=== PATIENT | male | born 1945 | race Caucasian/White ===

== ENCOUNTER 2022-08-31 13:04 | Inpatient (IN) | payer MEDICARE ==
[~2022-08-31 13:04] MED LIST: Iopamidol-370 76% 500 ML 1 ML ONE; Magnevist 469MG/ML 20 ML VIAL ONE
[2022-08-31] MEDS ORDERED: Dexamethasone 10 MG/ML VIAL ONE (13:44)
[2022-08-31 13:46] LABS: #Eosinphils 0.1 thou/uL (0.0-0.7); #Lymphocytes 0.8 thou/uL (1.20-3.40); #Monocytes 0.9 thou/uL (0.11-0.59); #Neutrophils 7.8 thou/uL (1.40-6.50); %Basophils 0.1 % (0.0-1.0); %Eosinophils 1.3 % (0.0-10.0); %Lymphocytes 8.2 % (21.0-51.0); %Monocytes 9.8 % (0.0-10.0); %Neutrophils 80.7 % (42.0-75.0); Hemoglobin 14.3 g/dL (14.0-18.0); Mean Corpuscular Hemoglobin 32.1 pg (27.0-31.0); Mean Corpuscular Volume 97.1 fL (78.0-98.0); Mean Platelet Volume 6.5 fL (7.4-10.4); Platelet Count 357 thou/uL (130-400); RBC Distribution Width 10.7 % (11.5-14.5); Red Blood Cell (RBC) Count 4.45 mill/uL (4.70-6.10); White Blood Cell (WBC) Count 9.6 thou/uL (4.8-10.8)
[2022-08-31 14:00] LABS: INR-International Normal Ratio 1.2; PTT 30.7 sec (22.9-36.1); Prothrombin Time 15.3 sec (12.0-14.7)
[2022-08-31 14:13] LABS: ALT (SGPT) 25 U/L (8-55); AST (SGOT) 45 U/L (5-34); Albumin 3.8 g/dL (3.4-4.8); Alkaline Phosphatase 93 U/L (40-110); Anion Gap 15 mmol/L (10-20); BUN (Urea Nitrogen) 18 mg/dL (8.4-25.7); Bilirubin, Total 0.9 mg/dL (0.2-1.2); Calc. Creatinine Clearance 0 mL/min (70-130); Calcium 9.3 mg/dL (7.8-10.44); Carbon Dioxide 20 mmol/L (23-31); Chloride 104 mmol/L (98-107); Estimated GFR 89; Globulin 3.7 g/dL (2.4-3.5); Glucose 118 mg/dL (83-110); Potassium 4.1 mmol/L (3.5-5.1); Protein, Total 7.5 g/dL (5.8-8.1); Sodium 135 mmol/L (136-145)
[2022-08-31] MEDS ORDERED: Ondansetron PF 4 MG/2 ML Vial IVP PRN (15:25)
[2022-08-31] MEDS ORDERED: hydrALAZINE 20 MG/ML VIAL SLOW IVP PRN (15:25)
[2022-08-31] MEDS ORDERED: Acetaminophen 650 MG Suppository PR PRN (15:25)
[2022-08-31] MEDS ORDERED: Bisacodyl 10 MG SUPP PR PRN (15:25)
[2022-08-31 16:48] VITALS: BMI 20.8
[2022-08-31] MEDS: Sodium Chloride 0.9% 1,000 ML IV SCH (17:18)
[2022-08-31] MEDS: Famotidine/PF 20 mg/2ml Vial SLOW IVP SCH (20:49)
[2022-08-31] MEDS: Dexamethasone 4 mg/ml Vial SLOW IVP SCH (20:49)
[2022-09-01] MEDS: Dexamethasone 4 mg/ml Vial SLOW IVP SCH ×3 (02:14→13:38)
[2022-09-01 03:58] LABS: #Lymphocytes 0.5 thou/uL (1.20-3.40); #Monocytes 0.5 thou/uL (0.11-0.59); #Neutrophils 7.4 thou/uL (1.40-6.50); %Eosinophils 0.2 % (0.0-10.0); %Lymphocytes 5.9 % (21.0-51.0); %Monocytes 5.8 % (0.0-10.0); %Neutrophils 88.1 % (42.0-75.0); Hemoglobin 12.7 g/dL (14.0-18.0); Mean Corpuscular HGB CONC 33.4 g/dL (32.0-36.0); Mean Corpuscular Hemoglobin 32.5 pg (27.0-31.0); Mean Corpuscular Volume 97.1 fl (78.0-98.0); Mean Platelet Volume 6.5 fL (7.4-10.4); Platelet Count 304 thou/uL (130-400); RBC Distribution Width 10.7 % (11.5-14.5); Red Blood Cell (RBC) Count 3.93 mill/uL (4.70-6.10); White Blood Cell (WBC) Count 8.4 thou/uL (4.8-10.8)
[2022-09-01 04:13] LABS: Hemoglobin A1c 5.4 % (4.0-6.0)
[2022-09-01 04:18] LABS: ALT (SGPT) 29 U/L (8-55); AST (SGOT) 53 U/L (5-34); Albumin 3.5 g/dL (3.4-4.8); Alkaline Phosphatase 84 U/L (40-110); Anion Gap 13 mmol/L (10-20); BUN (Urea Nitrogen) 20 mg/dL (8.4-25.7); Bilirubin, Total 0.7 mg/dL (0.2-1.2); Calc. Creatinine Clearance 74 mL/min (70-130); Calcium 8.9 mg/dL (7.8-10.44); Carbon Dioxide 22 mmol/L (23-31); Cardiac Risk 3.4 (Less than 4.5); Chloride 108 mmol/L (98-107); Cholesterol 148 mg/dl (< 200 Desired); Estimated GFR 92; Globulin 3.2 g/dL (2.4-3.5); Glucose 129 mg/dL (83-110); HDL Cholesterol 43 mg/dL (>60 Neg Risk); LDL Cholesterol, Calculated 96 mg/dL; Potassium 4.3 mmol/L (3.5-5.1); Protein, Total 6.7 g/dL (5.8-8.1); Sodium 139 mmol/L (136-145); Triglycerides 44 mg/dL (Less than 150)
[2022-09-01] MEDS: Sodium Chloride 0.9% 1,000 ML IV SCH (05:31)
[2022-09-01] MEDS: Famotidine/PF 20 mg/2ml Vial SLOW IVP SCH ×2 (08:01→20:22)
[2022-09-01] MEDS: Senokot S 8.6-50 MG TAB PO SCH (20:22)
[2022-09-02 03:34] VITALS: TEMP 97.7
[2022-09-02 07:22] LABS: Anion Gap 16 mmol/L (10-20); BUN (Urea Nitrogen) 25 mg/dL (8.4-25.7); Calc. Creatinine Clearance 75 mL/min (70-130); Calcium 8.8 mg/dL (7.8-10.44); Carbon Dioxide 20 mmol/L (23-31); Chloride 108 mmol/L (98-107); Estimated GFR 93; Glucose 79 mg/dL (83-110); Potassium 3.8 mmol/L (3.5-5.1); Sodium 140 mmol/L (136-145)
[2022-09-02] MEDS ORDERED: Polyethylene Glycol 3350 17 GM Packet PO SCH (09:00)
[2022-09-02] MEDS: Famotidine/PF 20 mg/2ml Vial SLOW IVP SCH (09:31)
[2022-09-02] MEDS: Senokot S 8.6-50 MG TAB PO SCH (09:40)
[2022-09-02] MEDS ORDERED: traZODone HCl 50 MG TAB PO SCH (12:00)
[2022-09-02 12:13] VITALS: BP 143/60
== END 2022-09-02 16:24 | DRG 54 ==
LOC: SUATTDRO 13:04 → ERS 13:04 → CCU 16:07 → T4-B 09-01 18:22
PROVIDERS: ADMIT Hospitalist; ATTEND Hospitalist
DX: C71.9 Malignant neoplasm of brain, unspecified (principal); G93.6 Cerebral edema; I62.9 Nontraumatic intracranial hemorrhage, unspecified; G81.91 Hemiplegia, unspecified affecting right dominant side; G93.40 Encephalopathy, unspecified; Z20.822 Contact with and (suspected) exposure to COVID-19; Z66 Do not resuscitate; Z51.5 Encounter for palliative care; I10 Essential (primary) hypertension; E78.5 Hyperlipidemia, unspecified; N40.0 Benign prostatic hyperplasia without lower urinary tract symptoms; G47.00 Insomnia, unspecified; F03.90 Unspecified dementia, unspecified severity, without behavioral disturbance, psychotic disturbance, mood disturbance, and anxiety; G93.89 Other specified disorders of brain; Z79.899 Other long term (current) drug therapy; Z87.891 Personal history of nicotine dependence
CPT/HCPCS: 36415; 36416; 70450; 70553; 71045; 71260; 74177; 80048; 80053; 80061; 83036; 83735; 84484; 85025; 85610; 85730; 86850; 86900; 86901; 93005; 94760; 95816; 95819; 95957; 96374; A9579; J1100; J7050; Q9967; S0028; U0003; U0005